=== PATIENT | male | born 1960 | race Caucasian/White ===

== ENCOUNTER 2017-06-29 04:03 | Inpatient (IN) | payer OTHER ==
[2017-06-29] MEDS ORDERED: ALBUTEROL/IPRATROPIUM (NEB) 3 ML AMP HHN (05:00)
[2017-06-29] MEDS ORDERED: NACL 0.9% 3 ML SYG IV (05:00)
[2017-06-29] MEDS ORDERED: ACETAMINOPHEN 325 MG TAB PO (05:00)
[2017-06-29] MEDS: morphine 2 MG INJ IV (05:10)
[2017-06-29] MEDS: DEXTROSE 5%-0.45% NACL 1,000 ML IV ×3 (05:25→20:58)
[2017-06-29 06:06] LABS: ADD MAN DIFF? NO
[2017-06-29 06:16] LABS: WHITE BLOOD COUNT 8.3 10^3/ul (4.8-10.8)
[2017-06-29 06:16] LABS: BASOPHILS % 0.2 % (0.0-2.0); EOSINOPHILS # 0.1 10^3/ul (0.0-0.5); HEMATOCRIT 39.3 % (42.0-52.0); HEMOGLOBIN 13.6 g/dl (14.0-18.0); LYMPHOCYTES # 1.6 10^3/ul (0.8-2.9); LYMPHOCYTES % 19.8 % (15.0-51.0); MEAN CORPUSCULAR HEMOGLOBIN 32.2 pg (29.0-33.0); MEAN CORPUSCULAR HGB CONC 34.6 g/dl (32.0-37.0); MEAN CORPUSCULAR VOLUME 92.9 fl (82.0-101.0); MEAN PLATELET VOLUME 9.2 fl (7.4-10.4); MONOCYTE # 0.8 10^3/ul (0.3-0.9); MONOCYTES % 9.1 % (0.0-11.0); NEUTROPHIL # 5.8 10^3/ul (1.6-7.5); NEUTROPHILS % 69.5 % (39.0-77.0); PLATELET COUNT 285 10^3/UL (140-415); RED BLOOD COUNT 4.23 10^6/ul (4.70-6.10); RED CELL DISTRIBUTION WIDTH 12.4 % (11.5-14.5)
[2017-06-29 06:52] LABS: ALANINE AMINOTRANSFERASE 35 IU/L (13-69); ALBUMIN 3.9 g/dl (3.3-4.9); ALBUMIN/GLOBULIN RATIO 1.34; ALKALINE PHOSPHATASE 93 IU/L (42-121); ANION GAP 12 (8-16); ASPARTATE AMINO TRANSFERASE 23 IU/L (15-46); BILIRUBIN,INDIRECT 0.3 mg/dl (0-1.1); BILIRUBIN,TOTAL 0.3 mg/dl (0.2-1.3); BLOOD UREA NITROGEN 14 mg/dl (7-20); CALCIUM 8.9 mg/dl (8.4-10.2); CARBON DIOXIDE 25 mmol/L (21-31); CHLORIDE 107 mmol/L (97-110); CHOL/HDL RATIO 2.6 RATIO; CHOLESTEROL 124 mg/dl (100-200); CREATININE 0.79 mg/dl (0.61-1.24); GLUCOSE 93 mg/dl (70-220); HDL CHOLESTEROL 47 mg/dl (28-71); LDL CHOLESTEROL,CALCULATED 59 mg/dl; LIPASE 1127 U/L (23-300); MAGNESIUM 1.9 mg/dl (1.7-2.5); PHOSPHORUS 3.1 mg/dl (2.5-4.9); POTASSIUM 3.7 mmol/L (3.5-5.1); SODIUM 140 mmol/L (135-144); TOTAL PROTEIN 6.8 g/dl (6.1-8.1); TRIGLYCERIDES 90 mg/dl (0-149)
[2017-06-29] MEDS: KETOROLAC 30 MG INJ IV ×2 (06:55→22:00)
[2017-06-29] MEDS: FAMOTIDINE 20 MG INJ IV ×2 (09:36→20:58)
[2017-06-29] MEDS: morphine 4 MG/ML VIAL IV ×5 (09:36→23:51)
[2017-06-29] MEDS: IOHEXOL 300MG/ML 150 ML BTL (14:18)
[2017-06-29] MEDS: SOD CHLORIDE 0.9% 100 ML (14:18)
[2017-06-29] MEDS: ONDANSETRON 4 MG INJ IV (19:52)
[2017-06-30] MEDS: morphine 4 MG/ML VIAL IV ×5 (03:08→15:14)
[2017-06-30] MEDS: DEXTROSE 5%-0.45% NACL 1,000 ML IV ×3 (05:24→23:52)
[2017-06-30] MEDS: KETOROLAC 30 MG INJ IV ×3 (05:24→19:52)
[2017-06-30 05:46] LABS: ADD MAN DIFF? NO
[2017-06-30 05:58] LABS: WHITE BLOOD COUNT 6.9 10^3/ul (4.8-10.8)
[2017-06-30 05:58] LABS: BASOPHILS % 0.1 % (0.0-2.0); EOSINOPHILS # 0.1 10^3/ul (0.0-0.5); EOSINOPHILS % 1.3 % (0.0-7.0); HEMATOCRIT 41.5 % (42.0-52.0); HEMOGLOBIN 14.1 g/dl (14.0-18.0); LYMPHOCYTES # 1.2 10^3/ul (0.8-2.9); LYMPHOCYTES % 16.8 % (15.0-51.0); MEAN CORPUSCULAR VOLUME 94.3 fl (82.0-101.0); MEAN PLATELET VOLUME 9.2 fl (7.4-10.4); MONOCYTE # 0.7 10^3/ul (0.3-0.9); MONOCYTES % 10.3 % (0.0-11.0); NEUTROPHIL # 4.9 10^3/ul (1.6-7.5); NEUTROPHILS % 71.2 % (39.0-77.0); PLATELET COUNT 279 10^3/UL (140-415); RED CELL DISTRIBUTION WIDTH 12.4 % (11.5-14.5)
[2017-06-30 06:18] LABS: ANION GAP 13 (8-16); BLOOD UREA NITROGEN 9 mg/dl (7-20); CALCIUM 8.6 mg/dl (8.4-10.2); CARBON DIOXIDE 28 mmol/L (21-31); CHLORIDE 100 mmol/L (97-110); CREATININE 0.81 mg/dl (0.61-1.24); GLUCOSE 97 mg/dl (70-220); MAGNESIUM 1.8 mg/dl (1.7-2.5); PHOSPHORUS 3.4 mg/dl (2.5-4.9); SODIUM 137 mmol/L (135-144)
[2017-06-30] MEDS: FAMOTIDINE 20 MG INJ IV (09:11)
[2017-06-30] MEDS: HYDROmorphONE 0.5 MG/0.5 ML SYG IV ×2 (17:45→21:50)
[2017-06-30] MEDS: LORAZEPAM 2 MG INJ IV (19:52)
[2017-06-30] MEDS: HEPARIN 5,000 UNIT/0.5 ML VIAL SC (21:51)
[2017-07-01] MEDS: HYDROmorphONE 0.5 MG/0.5 ML SYG IV ×6 (01:39→20:41)
[2017-07-01] MEDS: LORAZEPAM 2 MG INJ IV ×2 (03:12→22:05)
[2017-07-01 06:08] LABS: HEMATOCRIT 42.6 % (42.0-52.0); HEMOGLOBIN 14.9 g/dl (14.0-18.0); MEAN CORPUSCULAR HEMOGLOBIN 32.5 pg (29.0-33.0); MEAN CORPUSCULAR VOLUME 92.8 fl (82.0-101.0); MEAN PLATELET VOLUME 9.4 fl (7.4-10.4); PLATELET COUNT 298 10^3/UL (140-415); POSITIVE DIFF @See below; RED BLOOD COUNT 4.59 10^6/ul (4.70-6.10); RED CELL DISTRIBUTION WIDTH 12.1 % (11.5-14.5)
[2017-07-01 06:08] LABS: WHITE BLOOD COUNT 3.6 10^3/ul (4.8-10.8)
[2017-07-01] MEDS: HEPARIN 5,000 UNIT/0.5 ML VIAL SC ×3 (06:30→21:56)
[2017-07-01 06:31] LABS: ADD MAN DIFF? YES
[2017-07-01 06:40] LABS: ANION GAP 14 (8-16); BLOOD UREA NITROGEN 9 mg/dl (7-20); CALCIUM 8.8 mg/dl (8.4-10.2); CARBON DIOXIDE 30 mmol/L (21-31); CHLORIDE 97 mmol/L (97-110); CREATININE 0.76 mg/dl (0.61-1.24); GLUCOSE 108 mg/dl (70-220); MAGNESIUM 1.8 mg/dl (1.7-2.5); PHOSPHORUS 3.4 mg/dl (2.5-4.9); SODIUM 137 mmol/L (135-144)
[2017-07-01] MEDS: DEXTROSE 5%-0.45% NACL 1,000 ML IV ×3 (06:47→17:47)
[2017-07-01 10:46] LABS: ANISOCYTOSIS 1+ (0-0); BAND NEUTROPHILS % (M) 30 % (0-4); EOSINOPHILS % (M) 1 % (0-7); GIANT THROMBO% (M) 1 % (0-0); LYMPHOCYTES #M 0.8 10^3/ul (0.8-2.9); LYMPHOCYTES % (M) 24 % (15-51); METAMYELOCYTES %M 2 % (0-0); MICROCYTOSIS 1+ (0-0); MONOCYTE #M 0.6 10^3/ul (0.3-0.9); MONOCYTES % (M) 19 % (0-11); MYELOCYTES % (M) 1 % (0-0); PLATELET ESTIMATE NORMAL; POLYCHROMASIA 1+ (0-0); REACTIVE LYMPHOCYTES% (M) 1 % (0-0); ROULEAU 1+ (0-0); SEG NEUT #M 0.8 10^3/ul (1.6-7.5); SEGMENTED NEUTROPHILS (M) % 22 % (39-77); SMUDGE%M 3 % (0-0)
[2017-07-02] MEDS: HYDROmorphONE 0.5 MG/0.5 ML SYG IV ×7 (01:06→21:54)
[2017-07-02] MEDS: DEXTROSE 5%-0.45% NACL 1,000 ML IV ×3 (02:58→15:21)
[2017-07-02 05:46] LABS: ADD MAN DIFF? NO
[2017-07-02] MEDS: HEPARIN 5,000 UNIT/0.5 ML VIAL SC ×3 (06:00→21:30)
[2017-07-02 06:04] LABS: WHITE BLOOD COUNT 3.4 10^3/ul (4.8-10.8)
[2017-07-02 06:04] LABS: BASOPHILS % 0.3 % (0.0-2.0); EOSINOPHILS # 0.1 10^3/ul (0.0-0.5); EOSINOPHILS % 2.4 % (0.0-7.0); HEMATOCRIT 36.3 % (42.0-52.0); HEMOGLOBIN 12.7 g/dl (14.0-18.0); LYMPHOCYTES # 1.3 10^3/ul (0.8-2.9); LYMPHOCYTES % 37.4 % (15.0-51.0); MEAN CORPUSCULAR HEMOGLOBIN 32.6 pg (29.0-33.0); MEAN CORPUSCULAR VOLUME 93.3 fl (82.0-101.0); MEAN PLATELET VOLUME 9.5 fl (7.4-10.4); MONOCYTE # 0.6 10^3/ul (0.3-0.9); MONOCYTES % 17.9 % (0.0-11.0); NEUTROPHIL # 1.4 10^3/ul (1.6-7.5); PLATELET COUNT 258 10^3/UL (140-415); RED BLOOD COUNT 3.89 10^6/ul (4.70-6.10); RED CELL DISTRIBUTION WIDTH 11.9 % (11.5-14.5)
[2017-07-02] MEDS: LORAZEPAM 2 MG INJ IV (06:12)
[2017-07-02 06:55] LABS: ANION GAP 10 (8-16); BLOOD UREA NITROGEN 6 mg/dl (7-20); CALCIUM 8.7 mg/dl (8.4-10.2); CARBON DIOXIDE 30 mmol/L (21-31); CHLORIDE 102 mmol/L (97-110); CREATININE 0.85 mg/dl (0.61-1.24); GLUCOSE 95 mg/dl (70-220); LIPASE 115 U/L (23-300); POTASSIUM 4.1 mmol/L (3.5-5.1); SODIUM 138 mmol/L (135-144)
[2017-07-02] MEDS: DIATR MEGLU/DIATRIZOATE SODIUM 120 ML BTL (10:13)
[2017-07-03] MEDS: HYDROmorphONE 0.5 MG/0.5 ML SYG IV ×3 (00:55→07:10)
[2017-07-03] MEDS: DEXTROSE 5%-0.45% NACL 1,000 ML IV (00:56)
[2017-07-03] MEDS: LORAZEPAM 2 MG INJ IV (01:59)
[2017-07-03] MEDS: HEPARIN 5,000 UNIT/0.5 ML VIAL SC (05:32)
[2017-07-03 06:11] LABS: ADD MAN DIFF? NO
[2017-07-03 06:21] LABS: BASOPHILS % 0.2 % (0.0-2.0); EOSINOPHILS # 0.1 10^3/ul (0.0-0.5); EOSINOPHILS % 2.7 % (0.0-7.0); LYMPHOCYTES # 1.3 10^3/ul (0.8-2.9); LYMPHOCYTES % 31.2 % (15.0-51.0); MEAN CORPUSCULAR HEMOGLOBIN 32.3 pg (29.0-33.0); MEAN CORPUSCULAR HGB CONC 35.1 g/dl (32.0-37.0); MEAN PLATELET VOLUME 9.4 fl (7.4-10.4); MONOCYTE # 0.6 10^3/ul (0.3-0.9); MONOCYTES % 15.1 % (0.0-11.0); NEUTROPHIL # 2.1 10^3/ul (1.6-7.5); NEUTROPHILS % 50.6 % (39.0-77.0); PLATELET COUNT 286 10^3/UL (140-415); RED BLOOD COUNT 4.02 10^6/ul (4.70-6.10)
[2017-07-03 06:21] LABS: WHITE BLOOD COUNT 4.1 10^3/ul (4.8-10.8)
[2017-07-03 06:53] LABS: ANION GAP 15 (8-16); BLOOD UREA NITROGEN 6 mg/dl (7-20); CALCIUM 8.9 mg/dl (8.4-10.2); CARBON DIOXIDE 26 mmol/L (21-31); CHLORIDE 104 mmol/L (97-110); CREATININE 0.81 mg/dl (0.61-1.24); GLUCOSE 105 mg/dl (70-220); MAGNESIUM 1.7 mg/dl (1.7-2.5); POTASSIUM 3.5 mmol/L (3.5-5.1); SODIUM 141 mmol/L (135-144)
== END 2017-07-03 08:55 | disposition left against medical advice (07) | DRG 439 ==
LOC: MS2 04:03
DX: K85.20 Alcohol induced acute pancreatitis without necrosis or infection (principal); K56.600 Partial intestinal obstruction, unspecified as to cause; K86.0 Alcohol-induced chronic pancreatitis; F10.10 Alcohol abuse, uncomplicated; Z85.038 Personal history of other malignant neoplasm of large intestine; Z87.891 Personal history of nicotine dependence
CPT/HCPCS: 71045; 74177; 74250; 80048; 80053; 80061; 83690; 83735; 84100; 85025; 87081